=== PATIENT | male | born 1965 | race Caucasian/White ===

== ENCOUNTER → 2017-03-31 | Day surgery (SDC) | payer BC ==
[~2017-03-31] MED LIST: LIDOCAINE 1% PF 2 ML VIAL. ID; MIDAZOLAM HCL/PF 2 MG/2 ML VIAL. IV; PROPOFOL 60 ML IV; fentaNYL PF VIAL 100 MCG/2 ML VIAL IV
[2017-03-31] MEDS: IV RINGERS,LACTATED 1000ML 1,000 ML IV (12:46)
== END | disposition home or self-care (01) ==
LOC: SURG 12:16
DX: Z12.11 Encounter for screening for malignant neoplasm of colon (principal); D12.5 Benign neoplasm of sigmoid colon; K64.0 First degree hemorrhoids; F17.210 Nicotine dependence, cigarettes, uncomplicated; Z79.899 Other long term (current) drug therapy
CPT/HCPCS: 45380; 88305; J2704

== ENCOUNTER → 2020-10-24 | Outpatient (CLI) | payer BC ==
[2017-03-31 14:52] VITALS: BP 111/56
[~2020-10-24] MED LIST changes: +ALPR1TAB2 PO; +CONTRAST GIVEN. MC PRN; +HYDR-2761 PO; +IOHEXOL 240 MG/ML 50ML VIAL. PO ONE; +IOHEXOL 300 MG/ML 100ML VIAL. IV ONE; +IOHEXOL 300 MG/ML 50 ML VIAL. IV ONE; -LIDOCAINE 1% PF 2 ML VIAL. ID; -MIDAZOLAM HCL/PF 2 MG/2 ML VIAL. IV; -PROPOFOL 60 ML IV; -fentaNYL PF VIAL 100 MCG/2 ML VIAL IV
--- NOTE | 2020-10-24 09:00 | RAD ---
EXAMINATION: CT ABDOMEN+PELVIS W CLINICAL HISTORY: Left lower quadrant abdominal pain TECHNIQUE: CT of the abdomen and pelvis was performed using standard technique, scanning from just ab ove the dome of the diaphragm to the symphysis pubis following administration of intravenous contrast . CT Dose Reduction Employed: One or more of the following individualized dose reduction techniques wer e utilized for this examination: 1. Automated exposure control 2. Adjustment of the mA and/or kV ac cording to patient size 3. Use of iterative reconstruction technique. COMPARISON: None FINDINGS: Visualized heart and lungs unremarkable. Liver, gallbladder, pancreas, spleen, adrenal glands, and kidneys unremarkable. Mildly filled urinary bladder. Mildly enlarged prostate. Vasectomy clips. No bowel dilation or definite wall thickening. Normal appendix. Mild arterial atherosclerotic calcification without aneurysm. Multilevel thoracolumbar degenerative changes, greatest at L5-S1. Partially visualized fixation hardw are in the right proximal femur. IMPRESSION: No evidence of acute abdominopelvic abnormality. Mildly enlarged prostate, correlate with PSA level. Electronically signed by: Baldemar Garcia DO (10/24/2020 8:58 AM) [email or web address]
== END ==
LOC: CT 06:50
PROVIDERS: ATTEND Family Medicine
DX: N40.0 Benign prostatic hyperplasia without lower urinary tract symptoms (principal)
CPT/HCPCS: 74177; Q9966; Q9967